=== PATIENT | male | born 1960 | race Caucasian/White ===

== ENCOUNTER → 2016-07-25 | Day surgery (SDC) | payer OTHER ==
[2016-07-23 13:14] VITALS: Ht 167.6 cm; Wt 72.7 kg
--- NOTE | 2016-07-24 20:20 | HISTORY & PHYSICAL EXAMINATION ---
DATE OF ADMISSION: 07/25/2016 DIAGNOSIS: Papilloma of the pharynx. HISTORY OF PRESENT ILLNESS: This 56-year-old gentleman presented with a lesion on his soft palate. This was found to be a small papilloma and he is being admitted for direct laryngoscopy and excision and also to check for any other sign of papilloma. PAST MEDICAL HISTORY: MEDICAL PROBLEMS: None. PREVIOUS SURGERIES: None. ALLERGIES: None known. FAMILY HISTORY: Negative. SOCIAL HISTORY: He is a prisoner at [facility]. REVIEW OF SYSTEMS: Otherwise, negative. PHYSICAL EXAMINATION: GENERAL: WNWD male. VITAL SIGNS: 5 feet 6 inches, 160 pounds. HEAD: Normocephalic. EYES: Normal. EARS: Tympanic membranes intact. NOSE: Nasal passages show swollen turbinates. THROAT: Shows moderate sized papilloma of the right soft palate. NECK: Supple. HEART: RRR. LUNGS: Clear. ABDOMEN: Soft. GENITOURINARY: Deferred. EXTREMITIES: Full range of motion. IMPRESSION: Papilloma of the soft palate. PLAN: For direct laryngoscopy to check for any other papilloma and for excision of the papilloma of the palate.
[~2016-07-25] VITALS: Ht 167.6 cm; Wt 72.7 kg
[~2016-07-25] MED LIST: ACET-1311 PO; ATROPINE SULFATE 0.1 MG/ML 5ML SYR IV PRN; DEXAMETHASONE SOD INJ 4 MG/ML VIAL ONE; DIPH25CA65 PO; DXY100 PO; EpHEDrine SULFATE INJ 50 MG/ML AMP IV PRN; EpINEphrine HCL INJ 1 MG/ML 5ML SYRINGE ONE; FENTANYL CITRATE INJ 50 MCG/1 ML 2 ML VIAL IV PRN; FENTANYL CITRATE INJ 50 MCG/1 ML 2 ML VIAL ONE; LACTATED RINGER'S 1000ML 1,000 ML IV SCH; MIDAZOLAM HCL 1 MG/ML 2ML VIAL ONE; MIRT30TA2 PO; ONDANSETRON INJ 2 MG/ML 2 ML VIAL ONE; OXYCODONE/ACETAMINOPHEN 5-325 TAB PO PRN; PROPOFOL IV EMULSION 10 MG/ML 20 ML VIAL IV ONE; SODIUM CHLORIDE 0.9% 1000ML 1,000 ML IV SCH; SUCCINYLCHOLINE CHLORIDE 20 MG/ML 10 ML VIAL IV ONE
--- NOTE | 2016-07-25 08:12 | History & Physical Bridge Note ---
H&P Re-Evaluation Bridge Note: I have examined the patient, reviewed the History & Physical and in the interval since the performance of the History & Physical I have noted the following changes of clinical significance: No changes noted
--- NOTE | 2016-07-25 10:02 | Discharge Instructions-SurgCtr ---
Discharge Instructions Date of Service Jul 25, 2016. Visit Reason for Visit: Papilloma Right Soft Palate Discharge Discharge Diagnosis / Problem: same Discharge Goals Goal(s): Diagnostic testing Activity Recommendations Activity Limitations: resume your previous activity Anesthesia . Post Anesthesia Instructions: If you have had General Anesthesia or IV Sedation: * Do not drive today. * Resume driving when surgeon permits. * Do not make important decisions or sign legal documents today. * Call surgeon for: 1. Temperature elevations greater than 101 degrees F. 2. Uncontrollable pain. 3. Excessive bleeding. 4. Persistent nausea and vomiting. 5. Medication intolerance (nausea, vomiting or rash). * For nausea and vomiting use only clear liquids such as: tea, soda, bouillon until nausea subsides, then gradually increase diet as tolerated. * If you have any concerns or questions, call your surgeon's office. If physician is unavailable and it is an emergency, call 911 or go to the nearest emergency room. . Instructions / Follow-Up Instructions / Follow-Up Avoid spicy foods and chips and pretzel for 1 week Diet Recommendations Home Diet: no limitations Pending Studies Studies pending at discharge: no Medical Emergencies . Who to Call and When: Medical Emergencies: If at any time you feel your situation is an emergency, please call 911 immediately. . Non-Emergent Contact Non-Emergency issues call your: Primary Care Provider . . "Provider Documentation" section prepared by Lizz Cm. . [place] Drug Monitoring Program Search Results: no issues identified
--- NOTE | 2016-07-25 10:49 | OPERATIVE REPORT ---
DATE OF OPERATION: 07/25/2016 PREOPERATIVE DIAGNOSIS: Papilloma of the right soft palate. POSTOPERATIVE DIAGNOSIS: Same. PROCEDURE: Direct laryngoscopy with excision of papilloma. SURGEON: Dr. Cm. ANESTHESIA: General endotracheal. COMPLICATIONS: None. BLOOD LOSS: Minimal. HISTORY OF PRESENT ILLNESS: This 56-year-old man presented with a lesion of the soft palate that was rather large. Because of the possibility of other papillomas direct laryngoscopy was felt to be indicated. OPERATION AND FINDINGS: PROCEDURE: The patient brought to the operating room and placed in supine position. General endotracheal anesthesia was induced, prepped, draped in usual sterile manner. The Dedo laryngoscope was used. The entire tongue and tongue base was inspected and then the vallecula and piriform sinus areas were inspected along with the post-cricoid area. All these areas were free of any lesions. Epiglottis was sharp, the vocal cords were normal with no sign of lesions. At this point, the papilloma of the right soft palate was excised using the cup forceps and upbiting scissors removing the lymphoma with a cuff of mucosa. This was sent to pathology. Hemostasis was noted to be adequate. The patient tolerated the procedure well and was taken to recovery area in satisfactory condition. I attest to the content of the Intraoperative Record and any orders documented therein. Any exception s are noted below.
--- NOTE | 2016-07-25 10:56 | Anesthesia Progress Nt - [facility] ---
Anesthesia Post Op Note Date & Time Jul 25, 2016 at 10:56 Vital Signs Pain Intensity: 0 Vital Signs Past 12 Hours Date Time Temp Pulse Resp B/P (MAP) Pulse Ox O2 Delivery O2 Flow Rate FiO2 07/25/16 10:38 36.4 80 20 125/85 100 Humidified Oxygen 6 Mask 07/25/16 09:10 36.6 74 18 149/81 (103) 96 Room Air Notes Mental Status: alert / awake / arousable, participated in evaluation Pt Amnestic to Procedure: Yes Nausea / Vomiting: adequately controlled Pain: adequately controlled Airway Patency, RR, SpO2: stable & adequate BP & HR: stable & adequate Hydration State: stable & adequate Anesthetic Complications: no major complications apparent
[2016-07-25 11:34] VITALS: BP 131/87; PULSE 67; O2SAT 95
== END ==
LOC: X.SURG 09:00
PROVIDERS: ATTEND Otolaryngology
DX: D10.39 Benign neoplasm of other parts of mouth (principal)

== ENCOUNTER 2016-08-22 16:50 | Inpatient (IN) | payer OTHER ==
[~2016-08-22] VITALS: Ht 154.9 cm; Wt 71.1 kg
[~2016-08-22 16:50] MED LIST changes: -ACET-1311 PO; -ATROPINE SULFATE 0.1 MG/ML 5ML SYR IV PRN; -DEXAMETHASONE SOD INJ 4 MG/ML VIAL ONE; -DIPH25CA65 PO; -DXY100 PO; -EpHEDrine SULFATE INJ 50 MG/ML AMP IV PRN; -EpINEphrine HCL INJ 1 MG/ML 5ML SYRINGE ONE; -FENTANYL CITRATE INJ 50 MCG/1 ML 2 ML VIAL IV PRN; -FENTANYL CITRATE INJ 50 MCG/1 ML 2 ML VIAL ONE; -LACTATED RINGER'S 1000ML 1,000 ML IV SCH; -MIDAZOLAM HCL 1 MG/ML 2ML VIAL ONE; -ONDANSETRON INJ 2 MG/ML 2 ML VIAL ONE; -OXYCODONE/ACETAMINOPHEN 5-325 TAB PO PRN; -PROPOFOL IV EMULSION 10 MG/ML 20 ML VIAL IV ONE; -SODIUM CHLORIDE 0.9% 1000ML 1,000 ML IV SCH; -SUCCINYLCHOLINE CHLORIDE 20 MG/ML 10 ML VIAL IV ONE
[2016-08-22] MEDS ORDERED: DIPH25CA65 PO (17:21)
[2016-08-22] MEDS ORDERED: ACET-1311 PO (17:21)
[2016-08-22] MEDS ORDERED: CEFTRIAXONE SOD INJ 1 GM ADDVIAL IV STA (17:22)
[2016-08-22] MEDS ORDERED: SODIUM CHLORIDE 0.9% 1000ML 1,000 ML IV ONE (17:22)
[2016-08-22] MEDS ORDERED: SODIUM CHLORIDE 0.9% 1000ML 1,000 ML IV STA (17:22)
--- NOTE | 2016-08-22 17:25 | EMERGENCY ROOM VISIT NOTE ---
History Report prepared by Janet: Dwain Reyes Under the Supervision of: Dr. Hadley Onofre M.D. First contact with patient: 17:14 Chief Complaint: LEG PAIN,LEG INJURY Stated Complaint: LEFT LEG SWELLING, RASH History of Present Illness The patient is a 56 year old male who presents to the Emergency Room from the corrections facility with complaints of persistent right leg pain that started 3 days ago. Per the corrections officers, it is unknown if the patient is on any medications for the right leg. There is associated right leg swelling and redness with the pain. The patient denies any chest pain. He is from [facility], and has lived in the [place] for 10 [place]. History limited to some language barrier. Source of History: patient, other (corrections officers) History Limited By: language Onset: 3 days ago Position: leg (left) Quality: other (pain) Timing: other (persistent) Associated Symptoms: No chest pain Note: Associated symptoms: Right leg redness and swelling. Review of Systems ROS limited secondary to some language barrier. Past Medical & Surgical Medical Problems: (1) No pertinent past medical history Old medical records were attempted to be reviewed but there are no old records at this hospital. Nurse's notes were reviewed and I agree with. Family History Unobtainable Secondary to language barrier. Social History Smoking Status: Current Every Day Smoker Marital Status: other (unknown) Housing Status: other (prisoner) Occupation Status: other (prisoner) Current/Historical Medications Scheduled Diphenhydramine Hcl (Benadryl Allergy), 1 CAP PO TID Mirtazapine Soltab (Remeron Soltab), 30 MG PO HS Scheduled PRN Acetaminophen (Tylenol), 650 MG PO for Pain or Fever Allergies Coded Allergies: NO KNOWN DRUG ALLERGIES (Verified Allergy, Unknown, ., 08/22/16) Physical Exam Vital Signs Date Time Temp Pulse Resp B/P (MAP) Pulse Ox O2 Delivery O2 Flow Rate FiO2 08/22/16 20:41 91 18 113/72 97 Room Air 08/22/16 19:19 92 16 114/69 95 Room Air 08/22/16 18:44 87 16 132/76 97 Room Air 08/22/16 16:54 36.8 97 16 127/77 97 Room Air Physical Exam General: Well developed well nourished in no acute distress, breathing comfortably on room air. Normal speech HEENT: Normal cephalic atraumatic. Pupils are equal round and reactive to light. Extraocular movements are intact. Oropharynx is pink with moist mucous membranes. No swelling of the mouth lips or tongue. Neck: Supple with a midline trachea. No meningeal signs or stiffness, no JVD or bruits. No Stridor. Chest: Clear to auscultation bilaterally. No wheezes or rhonchi. No increased work of breathing. Heart: regular rate and rhythm. Abdomen: Soft nontender, nondistended without rebound guarding or rigidity. Extremities: Redness of right lower extremity around the calf and extending up into groin, pulses difficult to palpate bilaterally but feet are warm and appear symmetrical. Spine/Back. Non tender to palpation. No CVA tenderness Skin: Good turgor without rashes. Neurologic exam: Cranial nerves two through 12 are intact. Motor and sensation are intact and symmetrical throughout. Medical Decision & Procedures ER Provider Diagnostic Interpretation: US results as stated below per my review and radiologist interpretation: ULTRASOUND RIGHT LOWER EXTREMITY VENOUS CLINICAL HISTORY: Right leg swelling and rash. COMPARISON STUDY: No priors. TECHNIQUE: Real-time, grayscale, and color Doppler sonography of the deep veins of the right lower extremity was performed from the inguinal crease to the calf. Compression and augmentation were utilized. FINDINGS: There is no sonographic evidence of deep venous thrombosis identified in the right lower extremity. The common femoral, superficial femoral, and popliteal veins are patent and normally compressible. The greater saphenous vein and the profunda femoris vein at the junction with the common femoral vein are clear. The visualized calf veins are patent. There are prominent right inguinal lymph nodes measuring up to 1.3 cm in short axis. IMPRESSION: 1. There is no sonographic evidence of deep venous thrombosis identified in the right lower extremity. 2. There are prominent right inguinal lymph nodes, likely on a reactive basis. Clinical correlation will be required. Electronically signed by: Karan Urban M.D. 08/22/2016 7:21 PM Dictated Date/Time: 08/22/2016 7:20 PM Laboratory Results 08/22/16 17:40 Red Blood Count 4.50, Mean Corpuscular Volume 89.8, Mean Corpuscular Hemoglobin 31.1, Mean Corpuscular Hemoglobin Concent 34.7, Mean Platelet Volume 9.3, Neutrophils (%) (Auto) 76.0, Lymphocytes (%) (Auto) 12.5, Monocytes (%) (Auto) 10.9, Eosinophils (%) (Auto) 0.1, Basophils (%) (Auto) 0.3, Neutrophils # (Auto ) 10.98, Lymphocytes # (Auto) 1.80, Monocytes # (Auto) 1.57, Eosinophils # (Auto ) 0.02, Basophils # (Auto) 0.04 08/22/16 17:40 Test 08/22/16 17:40 08/22/16 17:50 White Blood Count 14.44 K/uL (4.8-10.8) Red Blood Count 4.50 M/uL (4.7-6.1) Hemoglobin 14.0 g/dL (14.0-18.0) Hematocrit 40.4 % (42-52) Mean Corpuscular Volume 89.8 fL (80-100) Mean Corpuscular Hemoglobin 31.1 pg (25-34) Mean Corpuscular Hemoglobin Concent 34.7 g/dl (32-36) Platelet Count 271 K/uL (130-400) Mean Platelet Volume 9.3 fL (7.4-10.4) Neutrophils (%) (Auto) 76.0 % Lymphocytes (%) (Auto) 12.5 % Monocytes (%) (Auto) 10.9 % Eosinophils (%) (Auto) 0.1 % Basophils (%) (Auto) 0.3 % Neutrophils # (Auto) 10.98 K/uL (1.4-6.5) Lymphocytes # (Auto) 1.80 K/uL (1.2-3.4) Monocytes # (Auto) 1.57 K/uL (0.11-0.59) Eosinophils # (Auto) 0.02 K/uL (0-0.5) Basophils # (Auto) 0.04 K/uL (0-0.2) RDW Standard Deviation 40.3 fL (36.4-46.3) RDW Coefficient of Variation 12.3 % (11.5-14.5) Immature Granulocyte % (Auto) 0.2 % Immature Granulocyte # (Auto) 0.03 K/uL (0.00-0.02) Anion Gap 12.0 mmol/L (3-11) Est Creatinine Clear Calc Drug Dose 75.7 ml/min Estimated GFR () 108.7 Estimated GFR (Non- 93.8 BUN/Creatinine Ratio 16.6 (10-20) Calcium Level 9.2 mg/dl (8.5-10.1) Total Bilirubin 1.0 mg/dl (0.2-1) Direct Bilirubin 0.3 mg/dl (0-0.2) Aspartate Amino Transf (AST/SGOT) 23 U/L (15-37) Alanine Aminotransferase (ALT/SGPT) 31 U/L (12-78) Alkaline Phosphatase 76 U/L (45-117) Total Protein 8.0 gm/dl (6.4-8.2) Albumin 3.8 gm/dl (3.4-5.0) Lipase 87 U/L (73-393) Bedside Lactic Acid Venous 1.28 mmol/L (0.90-1.70) Laboratory studies as stated above per my review. Medications Administered Medications (Trade) Dose Ordered Sig/Don Route Start Time Stop Time Status Last Admin Dose Admin Sodium Chloride 1,000 ml @ 999 mls/hr Q1H1M STAT IV 08/22/16 17:22 08/22/16 18:22 DC 08/22/16 17:44 999 MLS/HR Sodium Chloride 1,000 ml @ 150 mls/hr Q6H40M ONCE IV 08/22/16 17:22 08/22/16 22:01 DC 08/22/16 17:44 150 MLS/HR Ceftriaxone Sodium (Rocephin Inj) 1 gm NOW STAT IV 08/22/16 17:22 08/22/16 17:24 DC 08/22/16 18:14 1 GM ECG Indication: other (leg pain, swelling) Rate (beats per minute): 89 Rhythm: normal sinus Findings: no acute ischemic change, no ectopy Comparison ECG Date: no prior available ED Course 1715: Past medical records reviewed. The patient was evaluated in room B5, and a complete history and physical examination were performed. 1721: Ordered Rocephin Inj 1 gm IV, NSS 1000 ml @ 150 mls/hr IV, NSS 1000 ml @ 999 mls/hr IV. 184: I reevaluated the patient and he seems comfortable. He is going over to ultrasound. 1954: I discussed the patient with Dr. Borja - [facility] hospitalist- he will evaluate the patient for further treatment. 2001: Upon reevaluation, the patient is resting comfortably. I discussed the results and treatment plan with the patient. He verbalized agreement of the treatment plan. The patient will be evaluated for further management. Medical Decision Differentials include, but are not limited to; cellulitis, DVT, electrolyte or metabolic abnormality. Medication Reconciliation: I attest that I have personally reviewed the patient' s current medication list. Blood pressure Screening: Patient was found to have normal blood pressure on screening and does not require follow-up. This patient comes in as described above. He was placed in room B5. He is here for treatment and evaluation of extensive cellulitis of his right lower extremity and it involves the calf and extends all the way up medially along the thigh. It does not appear to involve any joints. He does not appear to be septic. His lactic acid is not elevated however his white count is. He's been stable from a hemodynamic standpoint. IV access established was hydrated with normal saline. He was given Rocephin 1 g IV. Blood cultures have been obtained ultrasound shows no evidence of DVT. Given the extensive cellulitis, I do think he needs to be admitted to IV antibiotics. I did consult Dr. Story and he was seen in the ER for admission. Consults Time Called: 1949 Consulting Physician: Dr. Jonh FINN hospitalist Returned Call: 1954 I discussed the patient with Dr. Jonh FINN hospitalist- he will evaluate the patient for further treatment. Impression Primary Impression: Cellulitis Scribe Attestation The scribe's documentation has been prepared under my direction and personally reviewed by me in its entirety. I confirm that the note above accurately reflects all work, treatment, procedures, and medical decision making performed by me. Departure Information Dispostion Being Evaluated By Hospitalist Referrals Nathalie MOON (PCP) Patient Instructions [facility]
[2016-08-22 18:11] LABS: BASO % 0.3 %; BASO ABS # 0.04 K/uL (0-0.2); COMPLETE YES; EOS % 0.1 %; HEMATOCRIT 40.4 % (42-52); IG% 0.2 %; LYMPH % 12.5 %; MEAN CELL VOLUME 89.8 fL (80-100); MEAN CORPUSCULAR HEMOGLOBIN 31.1 pg (25-34); MEAN CORPUSCULAR HGB CONC 34.7 g/dl (32-36); MEAN PLATELET VOLUME 9.3 fL (7.4-10.4); MONO % 10.9 %; PLATELET COUNT 271 K/uL (130-400); WHITE BLOOD COUNT 14.44 K/uL (4.8-10.8)
[2016-08-22 18:37] LABS: BUN/CREATININE RATIO 16.6 (10-20); CALCIUM 9.2 mg/dl (8.5-10.1); CREATININE 0.9 mg/dl (0.60-1.40); POTASSIUM 3.8 mmol/L (3.5-5.1)
--- NOTE | 2016-08-22 19:22 | DIAGNOSTIC IMAGING REPORT ---
ULTRASOUND RIGHT LOWER EXTREMITY VENOUS CLINICAL HISTORY: Right leg swelling and rash. COMPARISON STUDY: No priors. TECHNIQUE: Real-time, grayscale, and color Doppler sonography of the deep veins of the right lower extremity was performed from the inguinal crease to the calf. Compression and augmentation were utilized. FINDINGS: There is no sonographic evidence of deep venous thrombosis identified in the right lower extremity. The common femoral, superficial femoral, and popliteal veins are patent and normally compressible. The greater saphenous vein and the profunda femoris vein at the junction with the common femoral vein are clear. The visualized calf veins are patent. There are prominent right inguinal lymph nodes measuring up to 1.3 cm in short axis. IMPRESSION: 1. There is no sonographic evidence of deep venous thrombosis identified in the right lower extremity. 2. There are prominent right inguinal lymph nodes, likely on a reactive basis. Clinical correlation will be required. Electronically signed by: Karan Urban M.D. 08/22/2016 7:21 PM Dictated Date/Time: 08/22/2016 7:20 PM
[2016-08-22] MEDS ORDERED: ALUMINUM/MAGNESIUM/SIMETH (MAALOX MAX) 30 ML UDC PO PRN (21:15)
[2016-08-22] MEDS ORDERED: ONDANSETRON INJ 2 MG/ML 2 ML VIAL IV PRN (21:15)
[2016-08-22] MEDS ORDERED: ACETAMINOPHEN 325 MG TAB PO PRN (21:15)
--- NOTE | 2016-08-22 21:16 | History and Physical ---
History & Physical Date & Time of Service: Aug 22, 2016 at 21:15 Chief Complaint: Left Leg Swelling, Rash Primary Care Physician: Nathalie MOON History of Present Illness Source: patient 56-year-old male with no significant past medical history from [facility] presented with complaints of persistent right leg pain which started about 3 days ago. Complains of pain and redness and swelling in the right leg. Denies any fevers or chills. Has only received Tylenol as an outpatient. Past Medical/Surgical History Medical Problems: (1) No pertinent past medical history Status: Chronic Family History Unobtainable Social History Smoking Status: Current Every Day Smoker Marital Status: other (unknown) Occupational Status: other (prisoner) Allergies Coded Allergies: NO KNOWN DRUG ALLERGIES (Verified Allergy, Unknown, ., 08/22/16) Home Medications Scheduled Diphenhydramine Hcl (Benadryl Allergy), 1 CAP PO TID Doxycycline Hyclate (Doxycycline Hyclate), 100 MG PO BID Mirtazapine Soltab (Remeron Soltab), 30 MG PO HS Scheduled PRN Acetaminophen (Tylenol), 650 MG PO for Pain or Fever Review of Systems Constitutional: No fever, No chills Eyes: No worsening of vision Respiratory: No shortness of breath Cardiovascular: No chest pain Genitourinary - Male: No hematuria Physical Exam Vital Signs Date Time Temp Pulse Resp B/P (MAP) Pulse Ox O2 Delivery O2 Flow Rate FiO2 08/22/16 20:41 91 18 113/72 97 Room Air 08/22/16 19:19 92 16 114/69 95 Room Air 08/22/16 18:44 87 16 132/76 97 Room Air 08/22/16 16:54 36.8 97 16 127/77 97 Room Air General Appearance: WD/WN, no apparent distress Eyes: normal inspection Neck: supple Respiratory/Chest: chest non-tender, lungs clear, normal breath sounds, no respiratory distress, no accessory muscle use Cardiovascular: regular rate, rhythm Abdomen/GI: normal bowel sounds, non tender, soft Extremities/Musculoskelatal: + pertinent finding (right lower extremity swelling with erythematous, warm and tender to palpation. no drainage/no ulcers) Neurologic/Psych: alert, normal mood/affect, oriented x 3 Skin: normal color Diagnostics Laboratory Results Results Past 24 Hours Test 08/22/16 17:40 08/22/16 17:50 Range/Units White Blood Count 14.44 4.8-10.8 K/uL Red Blood Count 4.50 4.7-6.1 M/uL Hemoglobin 14.0 14.0-18.0 g/dL Hematocrit 40.4 42-52 % Mean Corpuscular Volume 89.8 80-100 fL Mean Corpuscular Hemoglobin 31.1 25-34 pg Mean Corpuscular Hemoglobin Concent 34.7 32-36 g/dl Platelet Count 271 130-400 K/uL Mean Platelet Volume 9.3 7.4-10.4 fL Neutrophils (%) (Auto) 76.0 % Lymphocytes (%) (Auto) 12.5 % Monocytes (%) (Auto) 10.9 % Eosinophils (%) (Auto) 0.1 % Basophils (%) (Auto) 0.3 % Neutrophils # (Auto) 10.98 1.4-6.5 K/uL Lymphocytes # (Auto) 1.80 1.2-3.4 K/uL Monocytes # (Auto) 1.57 0.11-0.59 K/uL Eosinophils # (Auto) 0.02 0-0.5 K/uL Basophils # (Auto) 0.04 0-0.2 K/uL RDW Standard Deviation 40.3 36.4-46.3 fL RDW Coefficient of Variation 12.3 11.5-14.5 % Immature Granulocyte % (Auto) 0.2 % Immature Granulocyte # (Auto) 0.03 0.00-0.02 K/uL Sodium Level 130 136-145 mmol/L Potassium Level 3.8 3.5-5.1 mmol/L Chloride Level 95 98-107 mmol/L Carbon Dioxide Level 23 21-32 mmol/L Anion Gap 12.0 3-11 mmol/L Blood Urea Nitrogen 15 7-18 mg/dl Creatinine 0.90 0.60-1.40 mg/dl Est Creatinine Clear Calc Drug Dose 75.7 ml/min Estimated GFR () 108.7 Estimated GFR (Non- 93.8 BUN/Creatinine Ratio 16.6 10-20 Random Glucose 89 70-99 mg/dl Calcium Level 9.2 8.5-10.1 mg/dl Total Bilirubin 1.0 0.2-1 mg/dl Direct Bilirubin 0.3 0-0.2 mg/dl Aspartate Amino Transf (AST/SGOT) 23 15-37 U/L Alanine Aminotransferase (ALT/SGPT) 31 12-78 U/L Alkaline Phosphatase 76 45-117 U/L Total Protein 8.0 6.4-8.2 gm/dl Albumin 3.8 3.4-5.0 gm/dl Lipase 87 73-393 U/L Bedside Lactic Acid Venous 1.28 0.90-1.70 mmol/L Microbiology Results 08/22/16 Blood Culture, Received Pending 08/22/16 Blood Culture, Received Pending Diagnostic Radiology ULTRASOUND RIGHT LOWER EXTREMITY VENOUS CLINICAL HISTORY: Right leg swelling and rash. COMPARISON STUDY: No priors. TECHNIQUE: Real-time, grayscale, and color Doppler sonography of the deep veins of the right lower extremity was performed from the inguinal crease to the calf. Compression and augmentation were utilized. FINDINGS: There is no sonographic evidence of deep venous thrombosis identified in the right lower extremity. The common femoral, superficial femoral, and popliteal veins are patent and normally compressible. The greater saphenous vein and the profunda femoris vein at the junction with the common femoral vein are clear. The visualized calf veins are patent. There are prominent right inguinal lymph nodes measuring up to 1.3 cm in short axis. IMPRESSION: 1. There is no sonographic evidence of deep venous thrombosis identified in the right lower extremity. 2. There are prominent right inguinal lymph nodes, likely on a reactive basis. Clinical correlation will be required. Electronically signed by: Karan Urban M.D. 08/22/2016 7:21 PM Dictated Date/Time: 08/22/2016 7:20 PM Impression Assessment and Plan 56-year-old male with no significant past medical history from [facility] presented with complaints of persistent right leg pain which started about 3 days ago. Cellulitis right lower extremity: - Ultrasound Dopplers negative for DVT - Had not received any outpatient antibiotic therapy - Started on Rocephin 1 g daily - Can be switched to PO antibiotics if tolerated Insomnia: - Continue Remeron DVT prophylaxis: SCDs Full code Disposition: Admitted to [facility] Attending Addendum: I physically seen and examined this patient, have supervised the medical residents activities, and agree with the H&P as noted above with the following exceptions: NONE The patient is awake, well-developed and adequately nourished, alert and oriented 3, normocephalic and atraumatic, lying in bed and in no acute distress. HEENT--PERRL, EOMI, mucous membranes and oropharynx normal. Neck--supple, no JVD or bruits, thyroid normal, trachea midline, no adenopathy. Heart--normal S1 and S2, no extra beats, no murmurs, rubs or gallops. Lungs--clear bilaterally with good air movement, no respiratory distress, no accessory muscle use. Abdomen--normal bowel sounds and soft, nontender and nondistended, no hernias or masses, no organomegaly. Extremities/Dermatologic--right lower extremity with mild to moderate erythema from just below anterior tibial tuberosity to just above malleolar ridge. Neurologic--cranial nerves II through XII grossly intact, motor and sensory examination normal. Rheumatologic--normal range of motion, nontender, muscles and joints. Psychiatric--normal affect. Assessment and Plan: 1. Right lower extremity cellulitis without foot involvement--the patient will be admitted to the medical surgical floor. Continue ceftriaxone 1 g IV daily begun in the emergency department, and add Bactrim DS by mouth twice a day. Lower extremity venous Doppler was negative for DVT. Level of Care Med/Surg Resuscitation Status FULL RESUSCITATION VTE Prophylaxis VTE Risk Assessment Done? Y/N: Yes Risk Level: Moderate Given or contraindicated: SCD's Resident Tracking Resident Involvement: Resident Care Provided Care Provided: Adult Hospital Medicine
[2016-08-22] MEDS ORDERED: POLYETHYLENE (MIRALAX) 17 GM PACK PO PRN (21:30)
[2016-08-22 21:57] VITALS: BP 111/69; PULSE 96; TEMP 37.2; O2SAT 96; Ht 154.9 cm; Wt 71.1 kg
[2016-08-22] MEDS: MIRTAZAPINE TAB 15 MG TAB PO SCH (22:35)
[2016-08-23 07:30] VITALS: BP 107/60; PULSE 83; TEMP 36.8; O2SAT 97
[2016-08-23 07:32] LABS: HEMATOCRIT 37.5 % (42-52); MEAN CELL VOLUME 89.7 fL (80-100); MEAN CORPUSCULAR HEMOGLOBIN 30.1 pg (25-34); MEAN CORPUSCULAR HGB CONC 33.6 g/dl (32-36); MEAN PLATELET VOLUME 8.9 fL (7.4-10.4); PLATELET COUNT 269 K/uL (130-400); RED BLOOD COUNT 4.18 M/uL (4.7-6.1); WHITE BLOOD COUNT 11.97 K/uL (4.8-10.8)
[2016-08-23 08:01] LABS: BUN/CREATININE RATIO 16.8 (10-20); CALCIUM 8.7 mg/dl (8.5-10.1); CREATININE 0.69 mg/dl (0.60-1.40); POTASSIUM 3.9 mmol/L (3.5-5.1)
[2016-08-23] MEDS ORDERED: ENOXAPARIN 40 MG/0.4 ML SYR SQ ONE (08:46)
[2016-08-23 09:38] LABS: PROTHROMBIN TIME (PATIENT) 11.2 SECONDS (9.0-12.0)
[2016-08-23 15:53] VITALS: BP 113/72; PULSE 83; TEMP 36.7; O2SAT 97
[2016-08-23] MEDS ORDERED: CEFTRIAXONE SOD INJ 1 GM in DEXTROSE 5% ADD-VANTAGE 50ML 50 ML IV SCH (18:00)
[2016-08-23] MEDS: MIRTAZAPINE TAB 15 MG TAB PO SCH (21:08)
--- NOTE | 2016-08-23 22:10 | Family Medicine Progress Note ---
Progress Note Date of Service Aug 23, 2016. Subjective Pt evaluation today including: conversation w/ patient, physical exam, chart review, lab review, review of studies, review of inpatient medication list Pain: No pain reported by patient. PO Intake: Tolerating regular diet Voiding: no voiding problems Patient has no complaints today. Concerned he was going to have an operation on his leg, assured him that was not the case. He is pleased with the course of treatment thus far. Musculoskeletal: + swelling (anterior right hines tender to palpation) Skin: + see HPI, + new/changing skin lesions, + color change All Other Systems: Reviewed and Negative Medications Current Inpatient Medications Medications (Trade) Dose Ordered Sig/Don Route Start Time Stop Time Status Last Admin Dose Admin Acetaminophen (Tylenol Tab) 650 mg Q4H PRN PO 08/22/16 21:15 09/21/16 21:14 Al Hydrox/Mg Hydrox/Simethicone (Maalox Max Susp) 15 ml Q4H PRN PO 08/22/16 21:15 09/21/16 21:14 Polyethylene (Miralax Powder Packet) 17 gm DAILY PRN PO 08/22/16 21:30 09/21/16 21:29 Ondansetron HCl (Zofran Inj) 4 mg Q6H PRN IV 08/22/16 21:15 09/21/16 21:14 Mirtazapine (Remeron Tab) 30 mg HS PO 08/22/16 22:00 09/21/16 21:59 08/23/16 21:08 30 MG Ceftriaxone Sodium 1 gm/ Dextrose 50 ml @ 100 mls/hr Q24H IV 08/23/16 18:00 08/31/16 18:29 08/23/16 18:27 100 MLS/HR Diphenhydramine HCl (Benadryl Cap) 25 mg TID PO 08/23/16 08:00 09/22/16 07:59 08/23/16 21:08 25 MG Enoxaparin Sodium (Lovenox Inj) 40 mg QAM SQ 08/24/16 08:00 09/23/16 07:59 Objective Vital Signs Date Time Temp Pulse Resp B/P (MAP) Pulse Ox O2 Delivery O2 Flow Rate FiO2 08/23/16 16:00 Room Air 08/23/16 15:53 36.7 83 18 113/72 (86) 97 Room Air 08/23/16 08:10 Room Air 08/23/16 07:30 36.8 83 16 107/60 (76) 97 Room Air 08/23/16 00:01 Room Air 08/22/16 21:57 37.2 96 20 111/69 96 Room Air Physical Exam General Appearance: WD/WN, no apparent distress Eyes: normal inspection, PERRL, EOMI, sclerae normal ENT: normal ENT inspection, hearing grossly normal, pharynx normal Neck: supple, no JVD, no carotid bruits, trachea midline Respiratory/Chest: chest non-tender, lungs clear, normal breath sounds, no respiratory distress, no accessory muscle use Cardiovascular: regular rate, rhythm, no edema, no JVD, no murmur Abdomen: normal bowel sounds, non tender, soft Extremities: normal range of motion, + calf tenderness (tender to palpation of anterior hines (cellulitic area)), + swelling Neurologic/Psychiatric: no motor/sensory deficits, alert, normal mood/affect, oriented x 3 Skin: + pertinent finding (Cellulitis present on anterior right hines, from just above ankle joint to just below tibial tuberosity) Laboratory Results 08/23/16 07:08 08/23/16 07:08 Test 08/23/16 07:08 08/23/16 09:17 Red Blood Count 4.18 M/uL (4.7-6.1) Mean Corpuscular Volume 89.7 fL (80-100) Mean Corpuscular Hemoglobin 30.1 pg (25-34) Mean Corpuscular Hemoglobin Concent 33.6 g/dl (32-36) RDW Standard Deviation 39.9 fL (36.4-46.3) RDW Coefficient of Variation 12.3 % (11.5-14.5) Mean Platelet Volume 8.9 fL (7.4-10.4) Anion Gap 12.0 mmol/L (3-11) Est Creatinine Clear Calc Drug Dose 98.7 ml/min Estimated GFR () 121.3 Estimated GFR (Non- 104.6 BUN/Creatinine Ratio 16.8 (10-20) Calcium Level 8.7 mg/dl (8.5-10.1) Prothrombin Time 11.2 SECONDS (9.0-12.0) Prothromb Time International Ratio 1.0 (0.9-1.1) Assessment and Plan 56-year-old male from [facility] admitted with likely cellulitis of right lower leg, which started 3 days ago No significant PMH Current Issues: Cellulitis right lower extremity: - Ultrasound: negative for DVT - Started on Rocephin 1 g daily - When reassessed later in the day, there was mild improvement and minimal extravasation. - Will remain on Rocephin until reassessed tomorrow morning; may switch abx at that time Insomnia: - Continue Remeron VTE: lovenox Code status: Full code Dispo: Remains on [facility] Resident Physician Supervision Note: I interviewed and examined the patient. Discussed with Dr. Calvert and agree with findings and plan as documented in the note. Any exceptions or clarifications are listed here: None Documented By: Geronimo Henderson leg redness about the same, maybe increased some w streaking up leg pain about the same vitals noted nad breathing unlabored no pallor or icterus RLE area of dense erythema has appearance of clearing compared to outliend area , BUT new streaking and tenderness linearly lateral to knee and then medial thigh RLE cellulitis and lymphangitis - only had 1 dose of rocephin, not septic, not deteriorating, so risk/benefit of watchful waiting on rocephin vs transitioning abx favors keeping rocephin for now - ongoing vigilance - if continues to worsen or fails to improve into tomorrow then will have to change to include MRSA coverage Resident Tracking Resident Involvement: Resident Care Provided Care Provided: Adult Hospital Medicine
[2016-08-23 23:08] VITALS: BP 116/72; PULSE 87; TEMP 37.3; O2SAT 96
[2016-08-24 07:06] LABS: HEMATOCRIT 38.1 % (42-52); MEAN CELL VOLUME 89.6 fL (80-100); MEAN CORPUSCULAR HEMOGLOBIN 30.6 pg (25-34); MEAN CORPUSCULAR HGB CONC 34.1 g/dl (32-36); MEAN PLATELET VOLUME 9.3 fL (7.4-10.4); PLATELET COUNT 304 K/uL (130-400); RED BLOOD COUNT 4.25 M/uL (4.7-6.1); WHITE BLOOD COUNT 9.06 K/uL (4.8-10.8)
[2016-08-24 07:33] LABS: BUN/CREATININE RATIO 18.3 (10-20); CALCIUM 8.8 mg/dl (8.5-10.1); CREATININE 0.77 mg/dl (0.60-1.40); POTASSIUM 3.6 mmol/L (3.5-5.1)
[2016-08-24 07:37] VITALS: BP 105/69; PULSE 75; TEMP 36.6; O2SAT 95
[2016-08-24] MEDS ORDERED: ENOXAPARIN 40 MG/0.4 ML SYR SQ SCH (08:00)
[2016-08-24] MEDS ORDERED: DOXYCYCLINE HYCLATE 100 MG CAP PO SCH (10:00)
[2016-08-24 15:58] VITALS: BP 114/70; PULSE 74; TEMP 36.8; O2SAT 98
[2016-08-24] MEDS ORDERED: DXY100 PO (17:03)
--- NOTE | 2016-08-24 17:14 | Discharge Instructions ---
Discharge Instructions Date of Service Aug 24, 2016. Admission Reason for Admission: Cellulitis Discharge Discharge Diagnosis / Problem: Cellulitis of right lower limb Discharge Goals Goal(s): Decrease discomfort, Improve disease control, Therapeutic intervention Activity Recommendations Activity Limitations: per Instructions/Follow-up section . Instructions / Follow-Up Instructions / Follow-Up Patient presented with 3 day hx of persistent R leg pain, swelling, and redness. Continued to have normal vital signs throughout hospital stay, specifically normal temp and heartrate. Started treatment on IV Rocephin on day 1; minimal improvement if not further extravasation beyond the demarcated area. Made decision to switch to MRSA coverage and started 100 mg Doxycycline BID. Patient is responding well, and margins inside demarcated area are clearing, although slowly. Medical professional at facility may use discretion as well as clinical response how many days he should require of the doxy. We recommend 10-14; he has been prescribed 10. Any worsening of symptoms or extension beyond demarcated area should be brought back to ED Current Hospital Diet Patient's current hospital diet: Regular Diet Discharge Diet Recommended Diet: Regular Diet Procedures Procedures Performed: Ultrasound to rule out DVT; negative for DVT Pending Studies Studies pending at discharge: no Medical Emergencies . Who to Call and When: Medical Emergencies: If at any time you feel your situation is an emergency, please call 911 immediately. . Non-Emergent Contact Non-Emergency issues call your: Primary Care Provider . . "Provider Documentation" section prepared by Ling Calvert. . VTE Core Measure Inpt VTE Proph given/why not?: SCD's
[2016-08-24 17:24] VITALS: BP 114/70; PULSE 74; TEMP 36.8; O2SAT 98
--- NOTE | 2016-08-24 17:46 | Discharge Summary ---
Discharge Summary Date of Service Aug 24, 2016. (Ling Calvert M.D.) Discharge Summary Admission Date: Aug 22, 2016 at 21:15 Discharge Date: Aug 24, 2016 Discharge Disposition: Home Principal Diagnosis: Cellulitis (Ling Calvert M.D.) Medication Reconciliation New Medications: Doxycycline Hyclate (Doxycycline Hyclate) 100 Mg Cap 100 MG PO BID for 10 Days, CAP Responded well after switching from rocephin. Recommend 10-14 days. Medical professional at facility may use discretion for duration. Continued Medications: Acetaminophen (Tylenol) 325 Mg Tab 650 MG PO PRN for Pain or Fever, TAB Diphenhydramine Hcl (Benadryl Allergy) 25 Mg Cap 1 CAP PO TID, CAP Mirtazapine Soltab (Remeron Soltab) 30 Mg Soltab 30 MG PO HS, TAB Discharge Exam Review of Systems: Constitutional: No fever, No chills, No sweats, No weight loss, No weakness , No fatigue, No problem reported Eyes: No worsening of vision, No eye pain, No redness, No discharge, No diplopia, No problem reported ENT: No hearing loss, No unusual epistaxis, No nasal symptoms, No sore throat, No tinnitus, No dental problems, No trouble swallowing, No problem reported Respiratory: No cough, No sputum, No wheezing, No shortness of breath, No dyspnea on exertion, No dyspnea at rest, No hemoptysis, No problem reported Cardiovascular: No chest pain, No orthopnea, No PND, No edema, No claudication, No palpitations, No problem reported Abdomen: No pain, No nausea, No vomiting, No diarrhea, No constipation, No GI bleeding, No problem reported Musculoskeletal: + calf pain (right calf and hines) Genitourinary - Male: No hematuria, No dysuria, No urinary frequency, No urinary urgency, No urinary hesitancy, No urinary retention, No urinary incontinence, No penile discharge, No lesions, No impotence, No problem reported Neurologic: No memory loss, No paralysis, No weakness, No numbness/tingling , No vertigo, No balance problems, No problem reported Psychiatric: + insomnia, No depression symptoms, No anhedonism, No anxiety, No substance abuse, No problem reported Endocrine: No fatigue, No excessive thirst, No excessive urination, No problem reported Hematologic / Lymphatic: + swollen lymph nodes, No abnormal bleeding/ bruising, No clotting problems, No night sweats, No problem reported Physical Exam: General Appearance: no apparent distress Eyes: normal inspection, PERRL, EOMI, sclerae normal ENT: hearing grossly normal, pharynx normal Neck: supple, no JVD, trachea midline Respiratory/Chest: chest non-tender, lungs clear, normal breath sounds, no respiratory distress, no accessory muscle use Cardiovascular: regular rate, rhythm, no edema, no JVD, no murmur, normal peripheral pulses Abdomen / GI: normal bowel sounds, non tender, soft Extremities: no pedal edema, + calf tenderness, + inflammation, + pertinent finding (cellulitic area present on mostly anteriolateral right hines; rubor ) 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 nml as tested, no motor/sensory deficits , alert, normal mood/affect, normal reflexes, oriented x 3 Skin: normal color Lymphatic: no adenopathy (Ling Calvert M.D.) Hospital Course HPI 56-year-old male from [facility] admitted with likely cellulitis of right lower leg associated with pain, which started 3 days prior to admission No significant PMH Hospital Course: Cellulitis right lower extremity: - Ultrasound: negative for DVT - Started on Rocephin 1 g daily IV - Demarcated cellulitis borders - Reassessed area after 1 day on Rocephin;extravasation of cellulitis minimally beyond demarcated areas, no improvement - Switched antibiotic for more MRSA coverage to oral doxycycline 100 mg BID. - Marked improvement on doxycycline; discharged to facility with 10 day supply - Healthcare professional at facility can use discretion and clinical response to guide duration of therapy - Pain controlled with Tylenol Insomnia: - Continue Remeron If symptoms worsen (fever, extension well beyond demarcated area), please return to ER. Total Time Spent: Less than 30 minutes This includes examination of the patient, discharge planning, medication reconciliation, and communication with other providers. (Ling Calvert M.D.) Resident Physician Supervision Note: I interviewed and examined the patient. Discussed with Dr. Calvert and agree with findings and plan as documented in the note. Any exceptions or clarifications are listed here: None Documented By: Geronimo De Los Santos feeling better leg redness better. vitals noted RLE erythema improved RLE cellulitis - wasn't improving on rocephin now clelarly improving on doxycycline - continue, stable for discharge (Geronimo De Los Santos D.O.) Discharge Instructions Please refer to the electronic Patient Visit Report (Discharge Instructions) for additional information. (Ling Calvert M.D.) Additional Copies To [facility] Resident Tracking Resident Involvement: Resident Care Provided Care Provided: Adult Hospital Medicine (Ling Calvert M.D.)
== END 2016-08-24 18:12 | DRG 603 ==
LOC: C.EDB 16:52 → C.MS4W 21:15 → ENRESERV 21:22
PROVIDERS: ADMIT Family Medicine; ATTEND Family Medicine
DX: L03.115 Cellulitis of right lower limb (principal); G47.00 Insomnia, unspecified; F17.200 Nicotine dependence, unspecified, uncomplicated